=== PATIENT | male | born 1950 | race Caucasian/White ===

== ENCOUNTER → 2021-03-06 13:52 | Outpatient (CLI) | payer MEDICARE, SELFPAY ==
--- NOTE | 2021-03-06 13:30 | PET_ITS ---
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 COMPARISON EXAMINATION: None available PROCEDURE: The patient received an intravenous bolus injection of 10.2 mCi of Axumin (fluciclovine F-18) via the right hand, on the imaging table with the patient in the supine position followed by an intravenous normal saline flush. The patient in the supine position with arms above the head, CT scan for attenuation correction was performed immediately following the bolus injection and left up for 1-2 minutes. The PET scan acquisition was begun within 3-5 minutes following injection from mid thigh to the base of the skull. The total scan time was registered between 20-30 minutes. Axumin (fluciclovine F-18) injection is indicated for positron emission tomography PET imaging in men with suspected prostate cancer recurrence based on elevation of the serum prostatic surface antigen (PSA) levels following prior treatment intervention. FINDINGS: Head/Neck: There is no evidence of abnormal increased radiopharmaceutical concentration on review of the visualized cranial vault. CHEST: There is visualization of the left ventricular myocardium. Otherwise, there is no evidence of abnormal increased 18-F fluciclovine uptake manifest in the bilateral hemithorax pulmonary parenchyma, mediastinal structures and thoracic perihilum. Pertinent chest CT findings are as follows. Bilateral axillary soft tissue densities with fatty hilus are ametabolic. Scattered mediastinal soft tissue reveals no evidence of increased tracer uptake. There are no parenchymal densities-nodules encountered in the right and left hemithorax with evidence of definitive increased radiopharmaceutical concentration. Abdomen/Pelvis: There is no evidence of abnormal increased radiopharmaceutical concentration on inspection of all three axis reconstructions to include the abdomen and pelvis, right and left inguinal regions. Physiologic tracer uptake is noted in the hepatic, splenic parenchyma, right and left kidneys, the urinary bladder, intestinal tract and pancreatic head-tail. Review of CT of the abdomen and pelvis demonstrates the following cursor findings. Bilateral inguinal soft tissue densities with fatty hilus are non-fluciclovine avid. A fat containing left inguinal hernia is noted. Colonic diverticulosis is encountered without evidence of diverticulitis. The gallbladder appears surgically absent. Apparent postsurgical change is manifest in the lower pelvis. Skeletal: Degenerative changes are noted in the cervical, thoracic and lumbar spine without evidence of increased radiopharmaceutical concentration. There is no evidence of sclerotic, mixed sclerotic-lytic and/or lytic changes noted on review of the skeletal structures manifesting an increase in glucose metabolism. PET/PET/CT Tumor Base -Thigh Subs IMPRESSION: 1. NEGATIVE EXAMINATION. There is no definitive quantitative scintigraphic evidence of fluciclovine avid viable neoplasm. Electronic Signature Vinh Davis D.O. Electronically Signed: Vinh Davis DO at 22:19 EDT Tel , Service support ,
== END ==
PROVIDERS: Referring Provider Radiology Radiation Oncology; Visit Provider Radiology Radiation Oncology
DX: C61 Malignant neoplasm of prostate (principal); R97.20 Elevated prostate specific antigen [PSA]
CPT/HCPCS: 78815; A9588